=== PATIENT | female | born 1980 | race African-American/Black ===

== ENCOUNTER 2023-04-03 06:34 | Inpatient (IN) ==
[2023-04-03] MEDS ORDERED: ANCEF VIAL 1 GRAM ONE (06:49)
[2023-04-03] MEDS ORDERED: LR 1,000 ML IV 1,000 ML IV ONE (06:49)
[2023-04-03] MEDS ORDERED: BETADINE SOLN ONE (07:11)
[2023-04-03 07:12] VITALS: BMI 36.9
[2023-04-03] MEDS ORDERED: FENTANYL VIAL INJ 100 mcg ONE (07:12)
[2023-04-03] MEDS ORDERED: VERSED ONE (07:12)
[2023-04-03] MEDS ORDERED: PRECEDEX INJ VIAL IVP ONE (07:13)
[2023-04-03] MEDS ORDERED: PEPCID 20 MG VIAL ONE (07:13)
[2023-04-03] MEDS ORDERED: OFIRMEV IV 1000 MG VIAL 1,000 MG/100 ML VIAL IV ONE (07:13)
[2023-04-03] MEDS ORDERED: DIPRIVAN VIAL 20 ML ONE (07:13)
[2023-04-03] MEDS ORDERED: ZOFRAN INJ 4 MG VIAL ONE (07:13)
[2023-04-03] MEDS ORDERED: ZEMURON 100 MG VIAL ONE (07:13)
[2023-04-03] MEDS ORDERED: BRIDION ONE (07:13)
[2023-04-03] MEDS ORDERED: ROBINUL ONE (07:13)
[2023-04-03] MEDS ORDERED: MAGNESIUM SULFATE 1 GRAM/100 mL PREMIX 1 G/100 ML BAG IV PRN (07:18)
[2023-04-03] MEDS ORDERED: KLOR-CON PO PRN (07:18)
[2023-04-03] MEDS ORDERED: MICRO K EXTEN CAP 10 MEQ PO PRN (07:18)
[2023-04-03] MEDS ORDERED: K-RIDER 10 MEQ/NS 100 ML 10 MEQ/100 ML BAG IV PRN (07:18)
[2023-04-03] MEDS ORDERED: POTASSIUM CHL 40 MEQ/NS 0.45% 500 ML IV PRN (07:18)
[2023-04-03] MEDS ORDERED: POTASSIUM CHLORIDE LIQ PO PRN (07:18)
[2023-04-03] MEDS ORDERED: K-DUR TAB 20 MEQ PO PRN (07:18)
[2023-04-03] MEDS ORDERED: POTASSIUM CHL 60 MEQ/NS 0.45% 500 ML IV PRN (07:18)
[2023-04-03] MEDS ORDERED: XYLOCAINE 2 % (PLAIN) ONE (07:28)
[2023-04-03] MEDS ORDERED: ULTANE GAS IN ONE (07:28)
[2023-04-03] MEDS ORDERED: QUELICIN (OR ANECTINE) ONE (07:31)
[2023-04-03] MEDS ORDERED: DECADRON INJ ONE (08:00)
[2023-04-03] MEDS ORDERED: D5 1/2 NS 1,000 ML 1,000 ML IV ONE (08:33)
[2023-04-03] MEDS ORDERED: BARHEMSYS INJ IVP PRN (08:37)
[2023-04-03] MEDS ORDERED: K-DUR TAB 20 MEQ PO SCH (09:00)
[2023-04-03] MEDS ORDERED: MORPHINE SULFATE INJ 10 MG ONE (09:46)
[2023-04-03] MEDS ORDERED: TORADOL 30 MG VIAL ONE (09:46)
[2023-04-03] MEDS ORDERED: DILAUDID INJ ONE (09:59)
[2023-04-03] MEDS: DILAUDID INJ IVP PRN ×4 (10:01→10:43)
[2023-04-03] MEDS ORDERED: ANCEF VIAL 1 GRAM IVP ONE (10:03)
[2023-04-03] MEDS ORDERED: MORPHINE SULFATE PCA 30 MG ONE (10:44)
[2023-04-03] MEDS ORDERED: NARCAN INJ IVP ONE (10:49)
[2023-04-03] MEDS ORDERED: MORPHINE SULFATE PCA 30 MG IVP PRN (10:49)
[2023-04-03] MEDS ORDERED: BENADRYL INJ 50 MG VIAL IVP PRN (10:49)
[2023-04-03] MEDS ORDERED: ZOFRAN INJ 4 MG VIAL IVP PRN (10:49)
[2023-04-03] MEDS: D5 1/2 NS 1,000 ML 1,000 ML IV SCH ×4 (11:18→20:09)
[2023-04-03] MEDS ORDERED: NARCAN INJ IVP PRN (11:52)
[2023-04-03] MEDS ORDERED: PHENERGAN INJ 25 MG IM PRN (19:19)
[2023-04-04] MEDS: D5 1/2 NS 1,000 ML 1,000 ML IV SCH ×3 (04:00→21:13)
[2023-04-04 06:11] LABS: BASOPHILS % (AUTO) 0.2 % (0.2-1.0); HEMATOCRIT 32.5 % (36.0-47.0); HEMOGLOBIN 10.9 g/dL (12.0-16.0); LYMPHOCYTES # (AUTO) 1.5 X10^3/uL (1.3-2.9); MEAN CORPUSCULAR HEMOGLOBIN 30.1 pg (27.0-34.0); MEAN CORPUSCULAR HGB CONC 33.6 g/dL (33.0-35.0); MEAN CORPUSCULAR VOLUME 89.5 fL (80.0-100.0); MEAN PLATELET VOLUME 7.6 fL (7.4-11.0); MONOCYTES # (AUTO) 1.2 x10^3/uL (0.3-0.8); MONOCYTES % (AUTO) 7.6 % (0.0-13.0); NEUTROPHILS # (AUTO) 12.7 x10^3/uL (2.2-4.8); NEUTROPHILS % (AUTO) 82.2 % (42.0-75.0); PLATELET COUNT 307 X10^3/uL (150.0-450.0); RED BLOOD COUNT 3.63 X10^6/uL (3.5-5.4); WHITE BLOOD COUNT 15.4 X10^3/uL (3.6-10.0)
[2023-04-04 06:21] LABS: BLOOD UREA NITROGEN 8 mg/dL (7-18); CALCIUM 8.6 mg/dL (8.5-10.1); CARBON DIOXIDE 23.1 mmol/L (21-32); CHLORIDE 101 mmol/L (98-107); COR NA(FOR HYPERGLY) 136 mmol/L (136-145); CREATININE 0.71 mg/dL (0.55-1.02); GLUCOSE 139 mg/dL (65-99); POTASSIUM 3.5 mmol/L (3.5-5.1); SODIUM 135 mmol/L (136-145); eGFR NON BLACK RACES > 60 (>60)
[2023-04-04] MEDS ORDERED: PHARMACY CONSULT - POTASSIUM & MAGNESIUM XX SCH (07:00)
[2023-04-04] MEDS: TORADOL 30 MG VIAL IVP PRN ×2 (07:48→19:56)
[2023-04-04] MEDS ORDERED: K-RIDER 10 MEQ/NS 100 ML 20 MEQ/200 ML BAG IV ONE (08:00)
[2023-04-04] MEDS ORDERED: MOTRIN TAB 800 MG PO PRN (08:15)
[2023-04-04] MEDS ORDERED: PERCOCET TAB 5/325 MG PO PRN (08:15)
[2023-04-04] MEDS ORDERED: ESTRACE PO SCH (09:00)
[2023-04-04] MEDS: COLACE CAP 100 MG PO SCH ×2 (09:00→21:12)
[2023-04-04] MEDS: BACTROBAN TOPICAL OINT TOP SCH ×2 (14:39→21:13)
[2023-04-04] MEDS ORDERED: K-DUR TAB 20 MEQ PO ONE (15:00)
[2023-04-04 16:10] VITALS: O2SAT 100
[2023-04-04 21:13] VITALS: RESP 20
[2023-04-05] MEDS: D5 1/2 NS 1,000 ML 1,000 ML IV SCH (03:01)
[2023-04-05 04:42] VITALS: BP 104/70; PULSE 74; TEMP 98.2
[2023-04-05] MEDS: BACTROBAN TOPICAL OINT TOP SCH (06:03)
== END 2023-04-05 10:18 | disposition home or self-care (01) | DRG 743 ==
LOC: MED/SURG 06:34
PROVIDERS: ADMIT Specialist; ATTEND Specialist
DX: D25.1 Intramural leiomyoma of uterus; R10.2 Pelvic and perineal pain; N92.5 Other specified irregular menstruation; N94.4 Primary dysmenorrhea